=== PATIENT | female | born 1945 | race Caucasian/White ===

== ENCOUNTER → 2019-07-20 | Outpatient (CLI) | payer MEDICARE, OTHER | END | disposition home or self-care (01) | LOC: US 15:12 | DX: R60.0 Localized edema (principal); M79.662 Pain in left lower leg ==

== ENCOUNTER → 2019-12-05 | Outpatient (CLI) | payer MEDICARE, OTHER ==
[2019-12-05 15:59] LABS: BILIRUBIN, DIRECT 0.2 mg/dL (0.0-0.2)
[2019-12-06 06:05] LABS: TOTAL PROTEIN, SERUM 7.3 g/dL (6.0-8.5)
[2019-12-06 13:04] LABS: ANTI-SMOOTH MUSCLE ANTIBODY 3 Units (0-19)
[2019-12-06 15:08] LABS: A/G RATIO 1.2 (0.7-1.7); ALPHA-1-GLOBULIN 0.2 g/dL (0.0-0.4); ALPHA-2-GLOBULIN 0.9 g/dL (0.4-1.0); BETA GLOBULIN 1.2 g/dL (0.7-1.3); GAMMA GLOBULIN 0.9 g/dL (0.4-1.8); GLOBULIN, TOTAL 3.3 g/dL (2.2-3.9); M-SPIKE Not Observed g/dL (Not Observed)
[2019-12-07 15:08] LABS: ALBUMIN, URINE 61.5 % (.); ALPHA-1-GLOBULIN, URINE 2.8 % (.); ALPHA-2-GLOBULIN, URINE 10.4 % (.); GAMMA GLOBULIN, URINE 10.2 % (.); M-SPIKE, % Not Observed % (Not Observed); PROTEIN,TOTAL - URINE RANDOM 46.9 mg/dL (Not Estab.)
== END | disposition home or self-care (01) ==
LOC: LAB 14:23
PROVIDERS: Family Medicine
DX: E87.0 Hyperosmolality and hypernatremia (principal); E80.6 Other disorders of bilirubin metabolism

== ENCOUNTER → 2019-12-14 | Outpatient (CLI) | payer MEDICARE, OTHER ==
[2019-12-14 13:05] LABS: CREATININE 1.26 mg/dL (0.55-1.02)
== END | disposition home or self-care (01) ==
LOC: MRI 00:29
PROVIDERS: Family Medicine
DX: G45.9 Transient cerebral ischemic attack, unspecified (principal); H53.8 Other visual disturbances; M54.5 Low back pain; R42 Dizziness and giddiness

== ENCOUNTER → 2021-02-03 | Outpatient (CLI) | payer MEDICARE, OTHER ==
[~2021-02-03] MED LIST: ASPIRIN81 M1 PO; BUMETANIDE2 MG PO; OMEPRAZOLE40 MG PO
== END | disposition home or self-care (01) ==
LOC: CARD 00:25
PROVIDERS: ATTEND Internal Medicine Cardiovascular Disease
DX: R07.89 Other chest pain (principal)

== ENCOUNTER → 2022-04-14 | Outpatient (CLI) | payer MEDICARE, OTHER | END | disposition home or self-care (01) | LOC: CARD 03-31 08:30 | PROVIDERS: ATTEND Internal Medicine Cardiovascular Disease | DX: R06.00 Dyspnea, unspecified (principal) ==